=== PATIENT | female | born 1940 | race Two or more races ===

== ENCOUNTER 2016-05-19 01:30 | Emergency (ER) | payer MEDICAID, MEDICARE ==
[~2016-05-19] VITALS: Ht 157.5 cm; Wt 4.9 kg
[2016-05-19 01:56] VITALS: BP 177/78
[2016-05-19 02:27] LABS: Basophils # (auto) 0 uL; Basophils % (auto) 0.3 % (0.0-2.0); Eosinophils # (auto) 0.1 uL; Eosinophils % (auto) 1.7 % (0.0-7.0); Hematocrit 37.2 % (36.0-46.0); Hemoglobin 12.3 g/dL (12.2-16.2); Lymphocytes # (auto) 2.7 uL; Mean Corpuscular Hemoglobin 30.5 pg (28.0-32.0); Mean Corpuscular Volume 92.3 fL (80.0-100.0); Mean Platelet Volume 8.5 fL (7.4-10.4); Monocytes # (auto) 0.6 uL; Monocytes % (auto) 7.8 % (0.0-12.0); Neutrophils # (auto) 3.6 uL; Neutrophils % (auto) 51.2 % (37.0-80.0); Platelet Count (auto) 217 10^3/uL (140-450); White Blood Cell 7.1 10^3/uL (4.4-10.8)
[2016-05-19 02:39] LABS: INR 1.11 (0.9-1.15); Partial Thromboplastin Time 26.4 sec (22.64-33.71); Prothrombin Time 11.4 sec (9.37-12.3)
[2016-05-19 02:48] LABS: Albumin 3.4 g/dL (3.4-5.0); BUN/Creatinine Ratio 23.3; Calcium 8.6 mg/dL (8.5-10.1); Magnesium 2.1 mg/dL (1.6-2.6); Potassium 3.7 mmol/L (3.5-5.1)
[2016-05-19 02:50] LABS: Bilirubin, Total 0.2 mg/dL (0.2-1.0); Total Protein 7.2 g/dL (6.4-8.2)
[2016-05-20] MEDS ORDERED: BENA20TA PO (02:41)
[2016-05-20] MEDS ORDERED: GLIM1TAB2 PO (02:42)
== END 2016-05-19 05:32 | disposition left against medical advice (07) ==
LOC: ER 01:33
DX: R00.2 Palpitations (principal); R42 Dizziness and giddiness; Z53.21 Procedure and treatment not carried out due to patient leaving prior to being seen by health care provider
CPT/HCPCS: 36415; 71010; 80053; 83735; 84443; 84484; 85025; 85610; 85730; 93005; J7030

== ENCOUNTER 2016-05-19 09:46 | Inpatient (IN) | payer MEDICARE, MEDICAID ==
[~2016-05-19] VITALS: Ht 154.9 cm; Wt 73.8 kg
[2016-05-19 20:27] LABS: Basophils # (auto) 0 uL; Basophils % (auto) 0.3 % (0.0-2.0); Eosinophils # (auto) 0.1 uL; Eosinophils % (auto) 1.6 % (0.0-7.0); Hematocrit 39.3 % (36.0-46.0); Hemoglobin 12.6 g/dL (12.2-16.2); Lymphocytes # (auto) 2.4 uL; Lymphocytes % (auto) 36.7 % (10.0-50.0); Mean Corpuscular Hemoglobin 29.9 pg (28.0-32.0); Mean Corpuscular Volume 93.3 fL (80.0-100.0); Mean Platelet Volume 8.9 fL (7.4-10.4); Monocytes # (auto) 0.5 uL; Monocytes % (auto) 7.4 % (0.0-12.0); Neutrophils # (auto) 3.5 uL; Platelet Count (auto) 211 10^3/uL (140-450); Red Cell Distribution Width 13.2 % (11.6-16.0); White Blood Cell 6.5 10^3/uL (4.4-10.8)
[2016-05-19 20:37] LABS: INR 1.12 (0.9-1.15); Partial Thromboplastin Time 26.4 sec (22.64-33.71); Prothrombin Time 11.5 sec (9.37-12.3)
[2016-05-19 20:47] LABS: Albumin 3.8 g/dL (3.4-5.0); BUN/Creatinine Ratio 22.2; Calcium 8.9 mg/dL (8.5-10.1); Magnesium 2.2 mg/dL (1.6-2.6); Potassium 3.5 mmol/L (3.5-5.1)
[2016-05-19 20:50] LABS: Bilirubin, Total 0.6 mg/dL (0.2-1.0); Total Protein 7.6 g/dL (6.4-8.2)
[2016-05-19 21:21] LABS: B-Type Natriuretic Peptide 23.6 pg/mL (0-100)
[2016-05-19 21:24] LABS: Temperature: 22.5 C (20.0-25.0)
[2016-05-20] VITALS (8 sets, daily range): BP systolic 99–193; BP diastolic 48–91
[2016-05-20] MEDS ORDERED: MORPHINE SULF INJ 2 MG/ML SYRINGE 1ML IV PRN (00:15)
[2016-05-20] MEDS ORDERED: LACTULOSE 20Gm/30ML SOLN PO PRN (00:15)
[2016-05-20] MEDS ORDERED: NITROGLYCERIN 0.4 MG SL TAB SL PRN (00:15)
[2016-05-20] MEDS ORDERED: DEXTROSE (50%) 50ML SYRG IV PRN (00:30)
[2016-05-20] MEDS: SODIUM CHLORIDE 0.9% 1,000 ML IV SCH ×2 (00:41→12:36)
[2016-05-20 00:51] LABS: Urine Bilirubin Negative (Negative); Urine Blood Negative /uL (Negative); Urine Color Yellow (Yellow); Urine Glucose Normal (Normal); Urine Ketone Negative (Negative); Urine Mucus FEW (None Seen); Urine RBC 1 /hpf (0 - 4); Urine Squamous Epithelial Cell FEW /hpf (<5); Urine Urobilinogen Normal (Negative); Urine WBC Clumps PRESENT /hpf (None Seen)
[2016-05-20 00:55] LABS: Urine Nitrite POSITIVE (Negative)
[2016-05-20] MEDS ORDERED: cloNIDine HCL 0.1 MG TAB PO ONE (02:00)
[2016-05-20] MEDS ORDERED: BENA20TA PO (02:41)
[2016-05-20] MEDS ORDERED: GLIM1TAB2 PO (02:42)
[2016-05-20] MEDS: ACCU-CHEK COMFORT CURVE STRIP VI SCH ×3 (05:38→17:51)
[2016-05-20] MEDS ORDERED: InsuLIN REG 1unit/0.01ml Soln (100units/ml) SC SCH (06:00)
[2016-05-20] MEDS: PANTOPRAZOLE SODIUM 40 MG/10 ML VIAL IV SCH (09:38)
[2016-05-20] MEDS: BENAZEPRIL HCL 10 MG TAB PO SCH (09:39)
[2016-05-20] MEDS: ENOXAPARIN SOD 40 MG/0.4 ML SYRINGE SC SCH (09:39)
[2016-05-20] MEDS ORDERED: ENOXAPARIN SOD 30 MG/0.3 ML SYRINGE SC SCH (10:00)
[2016-05-20] MEDS: cloNIDine HCL 0.1 MG TAB PO PRN (12:03)
[2016-05-20] MEDS ORDERED: ONDANSETRON HCL 4 MG/2 ML VIAL IV PRN (13:00)
[2016-05-20] MEDS: ATORVASTATIN 20 MG TAB PO SCH (21:50)
[2016-05-20] MEDS ORDERED: ASPirin 81 mg TAB PO ONE (22:15)
[2016-05-20] MEDS ORDERED: LORazepam 2MG/ML-1ML VIAL IV PRN (22:15)
[2016-05-20 22:30] LABS: Cholesterol 190 mg/dL (<200); HDL Cholesterol 52 mg/dL (40-59); LDL Cholesterol 127 mg/dL (<100); Triglycerides 111 mg/dL (<150)
[2016-05-21] MEDS: SODIUM CHLORIDE 0.9% 1,000 ML IV SCH ×2 (03:27→13:36)
[2016-05-21 04:58] VITALS: BP 139/54
[2016-05-21 05:38] LABS: Basophils # (auto) 0 uL; Basophils % (auto) 0.4 % (0.0-2.0); Eosinophils # (auto) 0.1 uL; Hemoglobin 11.7 g/dL (12.2-16.2); Lymphocytes # (auto) 2.4 uL; Lymphocytes % (auto) 37.9 % (10.0-50.0); Mean Corpuscular Hgb Conc. 33.5 g/dL (32.0-36.0); Mean Corpuscular Volume 92.4 fL (80.0-100.0); Mean Platelet Volume 8.6 fL (7.4-10.4); Monocytes # (auto) 0.5 uL; Monocytes % (auto) 8.2 % (0.0-12.0); Neutrophils # (auto) 3.3 uL; Neutrophils % (auto) 51.5 % (37.0-80.0); Platelet Count (auto) 198 10^3/uL (140-450); Red Cell Distribution Width 12.8 % (11.6-16.0); White Blood Cell 6.4 10^3/uL (4.4-10.8)
[2016-05-21 06:07] LABS: Albumin 3.1 g/dL (3.4-5.0); BUN/Creatinine Ratio 21.2; Bilirubin, Total 0.5 mg/dL (0.2-1.0); Calcium 8.8 mg/dL (8.5-10.1); Potassium 3.6 mmol/L (3.5-5.1); Total Protein 6.3 g/dL (6.4-8.2)
[2016-05-21 08:30] VITALS: BP 112/53
[2016-05-21] MEDS: ASPirin 81 mg TAB PO SCH (08:40)
[2016-05-21] MEDS: PANTOPRAZOLE SODIUM 40 MG/10 ML VIAL IV SCH (08:40)
[2016-05-21] MEDS: ENOXAPARIN SOD 40 MG/0.4 ML SYRINGE SC SCH (08:40)
[2016-05-21] MEDS: GLIMEPIRIDE 2 MG TAB PO SCH (08:40)
[2016-05-21] MEDS: BENAZEPRIL HCL 10 MG TAB PO SCH (08:45)
[2016-05-21] MEDS: Boost Glucose Control 8 Ounces PO SCH ×2 (12:00→18:00)
[2016-05-21 12:30] VITALS: BP 129/58
[2016-05-21 17:08] VITALS: BP 134/66
[2016-05-21 21:19] VITALS: BP 119/59
[2016-05-21] MEDS: ATORVASTATIN 20 MG TAB PO SCH (21:19)
[2016-05-22] MEDS: SODIUM CHLORIDE 0.9% 1,000 ML IV SCH ×2 (02:11→14:36)
[2016-05-22 05:22] VITALS: BP 140/70
[2016-05-22 07:19] LABS: Basophils # (auto) 0 uL; Basophils % (auto) 0.4 % (0.0-2.0); Eosinophils # (auto) 0.1 uL; Eosinophils % (auto) 1.7 % (0.0-7.0); Hematocrit 33.9 % (36.0-46.0); Hemoglobin 11.3 g/dL (12.2-16.2); Lymphocytes # (auto) 2.6 uL; Lymphocytes % (auto) 42.4 % (10.0-50.0); Mean Corpuscular Hemoglobin 30.9 pg (28.0-32.0); Mean Corpuscular Hgb Conc. 33.3 g/dL (32.0-36.0); Mean Corpuscular Volume 92.7 fL (80.0-100.0); Monocytes # (auto) 0.6 uL; Monocytes % (auto) 9.6 % (0.0-12.0); Neutrophils # (auto) 2.8 uL; Neutrophils % (auto) 45.9 % (37.0-80.0); Platelet Count (auto) 182 10^3/uL (140-450); Red Cell Distribution Width 13.1 % (11.6-16.0); White Blood Cell 6.1 10^3/uL (4.4-10.8)
[2016-05-22 07:28] LABS: BUN/Creatinine Ratio 25.8; Calcium 8.3 mg/dL (8.5-10.1); Potassium 3.6 mmol/L (3.5-5.1)
[2016-05-22 07:30] LABS: Bilirubin, Total 0.4 mg/dL (0.2-1.0); Total Protein 6.4 g/dL (6.4-8.2)
[2016-05-22] MEDS: Boost Glucose Control 8 Ounces PO SCH ×3 (08:00→18:00)
[2016-05-22] MEDS: ENOXAPARIN SOD 40 MG/0.4 ML SYRINGE SC SCH (08:37)
[2016-05-22] MEDS: ASPirin 81 mg TAB PO SCH (08:37)
[2016-05-22] MEDS: PANTOPRAZOLE SODIUM 40 MG/10 ML VIAL IV SCH (08:37)
[2016-05-22] MEDS: BENAZEPRIL HCL 10 MG TAB PO SCH (08:38)
[2016-05-22] MEDS: GLIMEPIRIDE 2 MG TAB PO SCH (08:38)
[2016-05-22 09:23] VITALS: BP 141/62
[2016-05-22] MEDS ORDERED: cefTRIAXone 1GM/50ML D5W 50 ML IV ONE (10:15)
[2016-05-22 12:56] VITALS: BP 141/69
[2016-05-22 16:33] VITALS: BP 135/65
[2016-05-22] MEDS: ATORVASTATIN 20 MG TAB PO SCH (21:24)
[2016-05-22] MEDS: cloNIDine HCL 0.1 MG TAB PO PRN (21:24)
[2016-05-22 22:00] VITALS: BP 157/66
[2016-05-23] MEDS: SODIUM CHLORIDE 0.9% 1,000 ML IV SCH ×2 (03:06→15:36)
[2016-05-23 05:00] VITALS: BP 151/66
[2016-05-23] MEDS: GLIMEPIRIDE 2 MG TAB PO SCH (08:09)
[2016-05-23] MEDS: cefTRIAXone 1GM/50ML D5W 50 ML IV SCH (08:11)
[2016-05-23] MEDS: Boost Glucose Control 8 Ounces PO SCH ×3 (08:13→18:15)
[2016-05-23 09:14] VITALS: BP 150/73
[2016-05-23] MEDS: BENAZEPRIL HCL 10 MG TAB PO SCH (10:13)
[2016-05-23] MEDS: ASPirin 81 mg TAB PO SCH (10:14)
[2016-05-23] MEDS: PANTOPRAZOLE SODIUM 40 MG/10 ML VIAL IV SCH (10:14)
[2016-05-23] MEDS: ENOXAPARIN SOD 40 MG/0.4 ML SYRINGE SC SCH (10:14)
[2016-05-23 12:07] VITALS: BP 165/71
[2016-05-23] MEDS ORDERED: amLODIPine BESYLATE 5 MG TAB PO ONE (12:30)
[2016-05-23] MEDS ORDERED: POTASSIUM CHL 20 Meq TABLET PO ONE (12:30)
[2016-05-23] MEDS ORDERED: HCTZ 25 MG TAB PO ONE (12:30)
[2016-05-23 17:00] VITALS: BP 146/69
[2016-05-23 21:01] VITALS: BP 139/72
[2016-05-23] MEDS: ATORVASTATIN 20 MG TAB PO SCH (21:48)
[2016-05-24] MEDS: SODIUM CHLORIDE 0.9% 1,000 ML IV SCH ×2 (04:06→16:36)
[2016-05-24 05:15] VITALS: BP 114/61
[2016-05-24] MEDS: Boost Glucose Control 8 Ounces PO SCH ×3 (08:00→18:00)
[2016-05-24] MEDS: ENOXAPARIN SOD 40 MG/0.4 ML SYRINGE SC SCH (08:56)
[2016-05-24] MEDS: GLIMEPIRIDE 2 MG TAB PO SCH (08:56)
[2016-05-24] MEDS: POTASSIUM CHL 20 Meq TABLET PO SCH (08:56)
[2016-05-24] MEDS: PANTOPRAZOLE SODIUM 40 MG/10 ML VIAL IV SCH (08:56)
[2016-05-24] MEDS: cefTRIAXone 1GM/50ML D5W 50 ML IV SCH (08:56)
[2016-05-24] MEDS: ASPirin 81 mg TAB PO SCH (08:57)
[2016-05-24] MEDS: BENAZEPRIL HCL 10 MG TAB PO SCH (08:58)
[2016-05-24] MEDS: HCTZ 25 MG TAB PO SCH (08:58)
[2016-05-24] MEDS: amLODIPine BESYLATE 5 MG TAB PO SCH (08:59)
[2016-05-24 09:00] VITALS: BP 143/67
[2016-05-24 13:00] VITALS: BP 123/58
[2016-05-24] MEDS ORDERED: LORazepam 2MG/ML-1ML VIAL IV ONE (16:00)
[2016-05-24 17:00] VITALS: BP 131/63
[2016-05-24 21:00] VITALS: BP_SYST 109; BP_SYST 124; BP_DIAS 71
[2016-05-24] MEDS: ATORVASTATIN 20 MG TAB PO SCH (21:58)
[2016-05-25 04:52] VITALS: BP 126/73
[2016-05-25] MEDS: Boost Glucose Control 8 Ounces PO SCH (08:00)
[2016-05-25] MEDS: PANTOPRAZOLE SODIUM 40 MG/10 ML VIAL IV SCH (08:59)
[2016-05-25] MEDS: ENOXAPARIN SOD 40 MG/0.4 ML SYRINGE SC SCH (08:59)
[2016-05-25 09:00] VITALS: BP 125/62
[2016-05-25] MEDS: ASPirin 81 mg TAB PO SCH (09:00)
[2016-05-25] MEDS: cefTRIAXone 1GM/50ML D5W 50 ML IV SCH (09:00)
[2016-05-25] MEDS: POTASSIUM CHL 20 Meq TABLET PO SCH (09:00)
[2016-05-25] MEDS: HCTZ 25 MG TAB PO SCH (09:01)
[2016-05-25] MEDS: BENAZEPRIL HCL 10 MG TAB PO SCH (09:01)
[2016-05-25] MEDS: amLODIPine BESYLATE 5 MG TAB PO SCH (09:02)
[2016-05-25] MEDS: GLIMEPIRIDE 2 MG TAB PO SCH (09:13)
[2016-05-25 11:58] VITALS: BP 125/62
[2016-05-25 12:24] VITALS: BP 125/62
== END 2016-05-25 13:35 | disposition home or self-care (01) | DRG 690 ==
LOC: ER 09:46 → TELE 09:47 → TELE-CENTR 05-20 01:42
PROVIDERS: ADMIT Family Medicine; ATTEND Internal Medicine Pulmonary Disease
DX: N39.0 Urinary tract infection, site not specified (principal); E87.0 Hyperosmolality and hypernatremia; E44.0 Moderate protein-calorie malnutrition; R42 Dizziness and giddiness; E11.65 Type 2 diabetes mellitus with hyperglycemia; B96.20 Unspecified Escherichia coli [E. coli] as the cause of diseases classified elsewhere; E87.8 Other disorders of electrolyte and fluid balance, not elsewhere classified; E66.3 Overweight; F40.240 Claustrophobia; G25.0 Essential tremor; H93.19 Tinnitus, unspecified ear; I10 Essential (primary) hypertension; I44.0 Atrioventricular block, first degree; Z79.82 Long term (current) use of aspirin; Z82.49 Family history of ischemic heart disease and other diseases of the circulatory system; Z83.3 Family history of diabetes mellitus; Z91.14 Patient's other noncompliance with medication regimen; Z90.49 Acquired absence of other specified parts of digestive tract; Z90.710 Acquired absence of both cervix and uterus; Z80.9 Family history of malignant neoplasm, unspecified; Z79.899 Other long term (current) drug therapy
CPT/HCPCS: 36415; 70551; 71010; 78582; 80053; 80061; 81001; 82962; 83036; 83735; 83880; 84443; 84484; 85025; 85610; 85730; 87086; 87088; 87186; 93005; 93306; 93886; 93970; 97110; 97116; 97530; C9113; J0696; J2405